=== PATIENT | male | born 1955 | race Caucasian/White ===

== ENCOUNTER 2023-04-24 13:33 | Outpatient (AMB) | payer MEDICARE, OTHER, SELFPAY ==
[2023-04-24 13:41] VITALS: BP 136/90; PULSE 80; O2SAT 98; BMI 38.3
--- NOTE | 2023-04-24 13:41 | HO.NEPHOV_ITS ---
HPI HPI Comments History of Present Illness Details I had the pleasure of seeing Kamaljit in follow-up of his chronic kidney disease. He has small left kidney. He has history of invasive melanoma of the neck. He has had DVT and is on anticoagulation. His serum creatinine in 2014 was 1.5 and has been staying around at 1.8. His blood pressure has been at goal. He denies any chest pain, shortness of breath, proximal nocturnal dyspnea, orthopnea, pedal edema or urinary symptoms. Recently serum creatinine has gone up to 2.6 with a serum potassium going up to 5.8. He was treated with Lokelma. He had no new active complaints at the time of this office visit. [facility] Medical History (Updated 04/24/23 @ 14:09 by Ashu Galindo MD) Atrophy of left kidney Chronic kidney disease, stage 3a DVT (deep venous thrombosis) Melanoma of neck Surgical History (Updated 04/24/23 @ 13:48 by Alfreda Miller MA) H/O neck surgery History of back surgery H/O knee surgery Social History (Updated 04/24/23 @ 13:49 by Alfreda Miller MA) Alcohol intake: current Comment: Socially Patient Tobacco Use Status: Former Tobacco user Vital Signs 04/24/23 13:41 Height 5 ft 10 in Weight 267 lb 2 oz BMI 38.3 BP 136/90 H Blood Pressure Location Rt brachial Position Sitting Pulse 80 Pulse Source Pulse Oximeter Pulse Oximetry (%) 98 Oxygen Delivery Method Room Air Physical Exam Vital Signs: Last Vital Signs Pulse 80 04/24/23 13:41 BP 136/90 H 04/24/23 13:41 Pulse Ox 98 04/24/23 13:41 Oxygen Delivery Method Room Air 04/24/23 13:41 BMI result Body Mass Index 38.3 Const General: comfortable and no acute distress Orientation/consciousness: patient oriented x3 HEENT Head: Yes normocephalic Mouth: Normal oral and palatal mucosa present Eyes EOM: EOMs intact bilaterally Neck Neck: Yes supple Resp Auscultation: clear to auscultation bilaterally Cardio Jugular venous distension: no JVD Rate: regular rate GI Palpation (GI): Soft to palpation Auscultation: normal bowel sounds General: Yes no CVA tenderness Back/Spine/Pelvis Back: no CVA tenderness Skin General skin exam: no rashes or lesions noted Neuro General: patient oriented x3 and moves all extremities Extrem General: Yes no pedal edema Assessment & Plan Assessment & Plan (1) Chronic kidney disease, stage 3a: Code(s): N18.31 - Chronic kidney disease, stage 3a (2) Atrophy of left kidney: Code(s): N26.1 - Atrophy of kidney (terminal) (3) Hyperkalemia: Code(s): E87.5 - Hyperkalemia Plan Kamaljit has atrophic left kidney. He recently had BRIAN most likely due to mild tubular injury. He had hyperkalemia at the same time. His hyperkalemia was treated with Lokelma. He has increased his hydration. He is not taking any nonsteroidal anti-inflammatory medications. I asked him to be on a strict low- potassium diet. His blood pressure has been at goal. He may be a candidate for [employer] Jardiance. It will be tough treating him with low-dose JENNIFER-inhibitor given his predilection for recurrent hyperkalemia. He would benefit from some weight loss. I did not make any medication changes today. I gave him list of foods with high potassium. Follow-up blood work ordered. Answered all questions. Follow-up given. Orders: Orders Electrolytes Today E87.5 - Hyperkalemia, N18.31 - Chronic kidney disease, stage 3a, N26.1 - Atrophy of kidney (terminal) Blood Urea Nitrogen Today E87.5 - Hyperkalemia, N18.31 - Chronic kidney disease, stage 3a, N26.1 - Atrophy of kidney (terminal) Creatinine Today E87.5 - Hyperkalemia, N18.31 - Chronic kidney disease, stage 3a, N26.1 - Atrophy of kidney (terminal) Coding Level of Care Code Est Pt Level 4 (40826) Diagnoses Chronic kidney disease, stage 3a N18.31 Atrophy of left kidney N26.1 Hyperkalemia E87.5 Results Reviewed Nephrology Results: No Data to Display
== END 2023-04-24 14:13 | disposition home or self-care (01) ==
PROVIDERS: PCP Internal Medicine; Visit Provider Internal Medicine Nephrology
DX: N18.31 Chronic kidney disease, stage 3a (principal); N26.1 Atrophy of kidney (terminal); E87.5 Hyperkalemia
CPT/HCPCS: 99214

== ENCOUNTER → 2023-04-24 13:33 | Outpatient (BNVA) | payer MEDICARE, OTHER, SELFPAY | PROVIDERS: PCP Internal Medicine; Visit Provider Internal Medicine Nephrology | DX: N18.31 Chronic kidney disease, stage 3a (principal); N26.1 Atrophy of kidney (terminal); E87.5 Hyperkalemia | CPT/HCPCS: 99212 ==

== ENCOUNTER 2023-05-24 13:19 | Outpatient (AMB) | payer MEDICARE, OTHER, SELFPAY ==
[2023-05-24 13:21] VITALS: BP 144/88; PULSE 75; O2SAT 98; BMI 38.1
--- NOTE | 2023-05-24 13:21 | HO.NEPHOV_ITS ---
HPI HPI Comments History of Present Illness Details I had the pleasure of seeing Kamaljit in follow-up of his chronic kidney disease. He has small left kidney. He has history of invasive melanoma of the neck. He has had DVT and is on anticoagulation. His serum creatinine in 2014 was 1.5 and has been staying around at 1.8 which is close to 2.0 now. His blood pressure has been at goal. He denies any chest pain, shortness of breath, proximal nocturnal dyspnea, orthopnea, pedal edema or urinary symptoms. Recently serum creatinine has gone up to 2.6 with a serum potassium going up to 5.8. He was treated with Lokelma. He has prostatic symptoms. His last PSA was just over 4.0. He had no new active complaints at the time of this office visit [facility], [facility] Medical History (Updated 04/24/23 @ 14:09 by Ashu Galindo MD) Atrophy of left kidney Chronic kidney disease, stage 3a DVT (deep venous thrombosis) Melanoma of neck Surgical History H/O neck surgery History of back surgery H/O knee surgery Social History Alcohol intake: current Comment: Socially Patient Tobacco Use Status: Former Tobacco user Vital Signs 05/24/23 13:21 Height 5 ft 10 in Weight 265 lb 8 oz BMI 38.1 BP 144/88 H Blood Pressure Location Lt brachial Position Sitting Pulse 75 Pulse Source Pulse Oximeter Pulse Oximetry (%) 98 Oxygen Delivery Method Room Air Physical Exam Vital Signs: Last Vital Signs Pulse 75 05/24/23 13:21 BP 144/88 H 05/24/23 13:21 Pulse Ox 98 05/24/23 13:21 Oxygen Delivery Method Room Air 05/24/23 13:21 BMI result Body Mass Index 38.1 Const General: comfortable and no acute distress Orientation/consciousness: patient oriented x3 HEENT Head: Yes normocephalic Mouth: Normal oral and palatal mucosa present Eyes EOM: EOMs intact bilaterally Neck Neck: Yes supple Resp Auscultation: clear to auscultation bilaterally Cardio Jugular venous distension: no JVD Rate: regular rate GI Palpation (GI): Soft to palpation Auscultation: normal bowel sounds General: Yes no CVA tenderness Back/Spine/Pelvis Back: no CVA tenderness Skin General skin exam: no rashes or lesions noted Neuro General: patient oriented x3 and moves all extremities Extrem General: Yes no pedal edema Assessment & Plan Assessment & Plan (1) Chronic kidney disease, stage 3a: Code(s): N18.31 - Chronic kidney disease, stage 3a (2) Atrophy of left kidney: Code(s): N26.1 - Atrophy of kidney (terminal) (3) Hyperkalemia: Code(s): E87.5 - Hyperkalemia Plan Kamaljit has atrophic left kidney. He has mild proteinuria. He recently had BRIAN most likely due to mild tubular injury. He had hyperkalemia at the same time. His hyperkalemia was treated with Lokelma. His K is 5.0 now. He has increased his hydration. He is not taking any nonsteroidal anti-inflammatory medications. I asked him to be on a strict low-potassium diet. His blood pressure has been at goal. His high K has reolved. He may be a candidate for Farxiga or Jardiance. It will be tough treating him with low-dose JENNIFER-inhibitor given his predilection for recurrent hyperkalemia. He would benefit from some weight loss. I did not make any medication changes today. He has a list of foods with high potassium.I asked him to take Flomax and see a Urologist which he wants to wait. His PSA is over 4.0. Follow-up blood work ordered. Answered all questions. Follow-up given. Coding Level of Care Code Est Pt Level 3 (15020) Diagnoses Chronic kidney disease, stage 3a N18.31 Atrophy of left kidney N26.1 Hyperkalemia E87.5 Results Reviewed Nephrology Results: No Data to Display
== END 2023-05-24 13:47 | disposition home or self-care (01) ==
PROVIDERS: PCP Internal Medicine; Visit Provider Internal Medicine Nephrology
DX: N18.31 Chronic kidney disease, stage 3a (principal); N26.1 Atrophy of kidney (terminal); E87.5 Hyperkalemia
CPT/HCPCS: 99213

== ENCOUNTER → 2023-05-24 13:19 | Outpatient (BNVA) | payer MEDICARE, OTHER, SELFPAY | PROVIDERS: PCP Internal Medicine; Visit Provider Internal Medicine Nephrology | DX: N18.31 Chronic kidney disease, stage 3a (principal); N26.1 Atrophy of kidney (terminal); E87.5 Hyperkalemia | CPT/HCPCS: 99212 ==

== ENCOUNTER 2023-08-23 13:20 | Outpatient (AMB) | payer MEDICARE, OTHER, SELFPAY ==
[2023-08-23 13:52] VITALS: BP 148/80; PULSE 68; O2SAT 96; BMI 36.9
--- NOTE | 2023-08-23 13:52 | HO.NEPHOV ---
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 He has small left kidney. He has history of invasive melanoma of the neck. He has had DVT and is on anticoagulation. His serum creatinine in 2015 was 1.5 and has been staying around at 1.8 which is close to 2.0 now. His blood pressure has been at goal. He denies any chest pain, shortness of breath, proximal nocturnal dyspnea, orthopnea, pedal edema or urinary symptoms. Recently serum creatinine has gone up to 2.6 with a serum potassium going up to 5.8. He was treated with Lokelma. He has prostatic symptoms. His last PSA was just over 4.0. He had no new active complaints at the time of this office visit [facility] Medical History (Updated 04/24/23 @ 14:09 by Ashu Galindo MD) Atrophy of left kidney Chronic kidney disease, stage 3a DVT (deep venous thrombosis) Melanoma of neck Surgical History H/O neck surgery History of back surgery H/O knee surgery Social History Alcohol intake: current Comment: Socially Patient Tobacco Use Status: Former Tobacco user Physical Exam Vital Signs: Last Vital Signs Pulse 68 08/23/23 13:52 BP 148/80 H 08/23/23 13:52 Pulse Ox 96 08/23/23 13:52 Oxygen Delivery Method Room Air 08/23/23 13:52 BMI result Body Mass Index 36.9 Results Reviewed Nephrology Results: No Data to Display Assessment & Plan Assessment & Plan (1) Chronic kidney disease, stage 3a: Code(s): N18.31 - Chronic kidney disease, stage 3a Category: Medical (2) Atrophy of left kidney: Code(s): N26.1 - Atrophy of kidney (terminal) Category: Medical (3) Hyperkalemia: Code(s): E87.5 - Hyperkalemia Category: Medical Plan Kamaljit has atrophic left kidney. He has mild proteinuria. He recently had BRIAN most likely due to mild tubular injury. He had hyperkalemia at the same time. His hyperkalemia was treated with Lokelma. His K is 5.0 now. He has increased his hydration. He is not taking any nonsteroidal anti-inflammatory medications. I asked him to be on a strict low-potassium diet. His blood pressure has been at goal. His high K has resolved. He may be a candidate for Farxiga or Jardiance. It will be tough treating him with low-dose JENNIFER-inhibitor given his predilection for recurrent hyperkalemia. He would benefit from some weight loss. I did not make any medication changes today. He has a list of foods with high potassium. Follow-up blood work ordered. Answered all questions. Follow-up given Orders: Orders Creatinine Today E87.5 - Hyperkalemia, N18.31 - Chronic kidney disease, stage 3a, N26.1 - Atrophy of kidney (terminal) Blood Urea Nitrogen Today E87.5 - Hyperkalemia, N18.31 - Chronic kidney disease, stage 3a, N26.1 - Atrophy of kidney (terminal) Electrolytes Today E87.5 - Hyperkalemia, N18.31 - Chronic kidney disease, stage 3a, N26.1 - Atrophy of kidney (terminal)
== END 2023-08-23 14:21 | disposition home or self-care (01) ==
PROVIDERS: PCP Internal Medicine; Visit Provider Internal Medicine Nephrology
DX: N18.31 Chronic kidney disease, stage 3a (principal); N26.1 Atrophy of kidney (terminal); E87.5 Hyperkalemia
CPT/HCPCS: 99214

== ENCOUNTER → 2023-08-23 13:20 | Outpatient (BNVA) | payer MEDICARE, OTHER, SELFPAY | PROVIDERS: PCP Internal Medicine; Visit Provider Internal Medicine Nephrology ==

== ENCOUNTER 2023-08-23 14:12 | Outpatient (REF) | payer MEDICARE, OTHER, SELFPAY ==
[2023-08-23 17:32] LABS: Anion Gap 9 (12-20); Blood Urea Nitrogen 33 mg/dL (9-16); Carbon Dioxide 23 mmol/L (22-29); Chloride 114 mmol/L (96-108); Estimated Glomerular Filt Rate 33; Potassium 4.2 mmol/L (3.3-5.1); Sodium 142 mmol/L (135-145)
== END 2023-08-23 14:13 | disposition home or self-care (01) ==
LOC: HO.HKASLDS 14:12
PROVIDERS: Visit Provider Internal Medicine Nephrology
DX: E87.5 Hyperkalemia (principal); N18.31 Chronic kidney disease, stage 3a; N26.1 Atrophy of kidney (terminal); Z86.718 Personal history of other venous thrombosis and embolism; Z79.01 Long term (current) use of anticoagulants
CPT/HCPCS: 36415; 80051; 82565; 84520; 99212

== ENCOUNTER 2023-10-17 12:02 | Outpatient (REF) | payer MEDICARE, OTHER, SELFPAY ==
[2023-10-17 19:08] LABS: Anion Gap 11 (12-20); Blood Urea Nitrogen 48 mg/dL (9-16); Calcium 9.1 mg/dL (8.4-10.2); Carbon Dioxide 23 mmol/L (22-29); Chloride 113 mmol/L (96-108); Estimated Glomerular Filt Rate 25; Potassium 5.3 mmol/L (3.3-5.1); Sodium 142 mmol/L (135-145)
== END 2023-10-17 12:03 | disposition home or self-care (01) ==
LOC: HO.HKASLDS 12:02
PROVIDERS: Visit Provider Internal Medicine Nephrology
DX: E87.5 Hyperkalemia (principal); N17.9 Acute kidney failure, unspecified; N26.1 Atrophy of kidney (terminal); N18.31 Chronic kidney disease, stage 3a
CPT/HCPCS: 36415; 80051; 82310; 82565; 84520

== ENCOUNTER 2023-10-30 10:51 | Outpatient (REF) | payer MEDICARE, OTHER, SELFPAY ==
[2023-10-30 18:31] LABS: Anion Gap 11 (12-20); Blood Urea Nitrogen 41 mg/dL (9-16); Carbon Dioxide 23 mmol/L (22-29); Chloride 113 mmol/L (96-108); Estimated Glomerular Filt Rate 30; Potassium 4.9 mmol/L (3.3-5.1); Sodium 142 mmol/L (135-145)
== END 2023-10-30 10:52 | disposition home or self-care (01) ==
LOC: HO.HKASLDS 10:51
PROVIDERS: Visit Provider Internal Medicine Nephrology
DX: N18.31 Chronic kidney disease, stage 3a (principal); N26.1 Atrophy of kidney (terminal); E78.5 Hyperlipidemia, unspecified; N17.9 Acute kidney failure, unspecified
CPT/HCPCS: 36415; 80051; 82310; 82565; 84520

== ENCOUNTER 2023-11-20 13:02 | Outpatient (REF) | payer MEDICARE, OTHER, SELFPAY ==
[2023-11-20 17:46] LABS: Anion Gap 13 (12-20); Blood Urea Nitrogen 33 mg/dL (9-16); Carbon Dioxide 20 mmol/L (22-29); Chloride 113 mmol/L (96-108); Estimated Glomerular Filt Rate 31; Sodium 141 mmol/L (135-145)
== END 2023-11-20 13:03 | disposition home or self-care (01) ==
LOC: HO.HKASLDS 13:02
PROVIDERS: Visit Provider Internal Medicine Nephrology
DX: E87.5 Hyperkalemia (principal); N18.31 Chronic kidney disease, stage 3a; N26.1 Atrophy of kidney (terminal)
CPT/HCPCS: 36415; 80051; 82565; 84520

== ENCOUNTER 2023-11-22 14:04 | Outpatient (AMB) | payer MEDICARE, OTHER, SELFPAY ==
[2023-11-22 14:22] VITALS: BP 134/84; PULSE 66; O2SAT 97; BMI 35.2
--- NOTE | 2023-11-22 14:22 | HO.NEPHOV ---
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 He has small left kidney. He has history of invasive melanoma of the neck. He has had DVT and is on anticoagulation. His serum creatinine in 2014 was 1.5 and has been staying around at 1.8 which is close to 2.0 now. His blood pressure has been at goal. He denies any chest pain, shortness of breath, proximal nocturnal dyspnea, orthopnea, pedal edema or urinary symptoms. Recently serum creatinine has gone up to 2.6 with a serum potassium going up to 5.8. He was treated with Lokelma. He has prostatic symptoms. His last PSA was just over 4.0. He had no new active complaints at the time of this office visit [facility] Medical History (Updated 11/22/23 @ 14:55 by Ashu Galindo MD) H/O nephrolithotomy with removal of calculi (~10/2023) Atrophy of left kidney Chronic kidney disease, stage 3a DVT (deep venous thrombosis) Melanoma of neck Surgical History H/O neck surgery History of back surgery H/O knee surgery Social History Alcohol intake: current Comment: Socially Patient Tobacco Use Status: Former Tobacco user Physical Exam Vital Signs: Last Vital Signs Pulse 66 11/22/23 14:22 BP 134/84 11/22/23 14:22 Pulse Ox 97 11/22/23 14:22 Oxygen Delivery Method Room Air 11/22/23 14:22 BMI result Body Mass Index 35.2 Const General: comfortable and no acute distress Orientation/consciousness: patient oriented x3 HEENT Head: Yes normocephalic Mouth: Normal oral and palatal mucosa present Eyes EOM: EOMs intact bilaterally Neck Neck: Yes supple Resp Auscultation: clear to auscultation bilaterally Cardio Jugular venous distension: no JVD Rate: regular rate GI Palpation (GI): Soft to palpation Auscultation: normal bowel sounds General: Yes no CVA tenderness Back/Spine/Pelvis Back: no CVA tenderness Skin General skin exam: no rashes or lesions noted Neuro General: patient oriented x3 and moves all extremities Extrem General: Yes no pedal edema Results Reviewed Nephrology Results: Sodium 141 mmol/L (135-145) 11/20/23 Potassium 5.0 mmol/L (3.3-5.1) 11/20/23 Chloride 113 mmol/L (96-108) H 11/20/23 Carbon Dioxide 20 mmol/L (22-29) L 11/20/23 BUN 33 mg/dL (9-16) H 11/20/23 Creatinine 2.13 mg/dL (0.5-1.4) H 11/20/23 Calcium 9.0 mg/dL (8.4-10.2) 10/30/23 Assessment & Plan Assessment & Plan (1) Chronic kidney disease, stage 3a: Code(s): N18.31 - Chronic kidney disease, stage 3a Category: Medical (2) Atrophy of left kidney: Code(s): N26.1 - Atrophy of kidney (terminal) Category: Medical (3) Hyperkalemia: Code(s): E87.5 - Hyperkalemia Category: Medical (4) Renal calculus: Code(s): N20.0 - Calculus of kidney Category: Medical Plan Kamaljit has atrophic left kidney. He has mild proteinuria. He has increased his hydration. He is not taking any nonsteroidal anti-inflammatory medications. I asked him to be on a strict low-potassium diet. His blood pressure has been at goal. His high K has resolved. He may be a candidate for Farxiga or Jardiance. It will be tough treating him with low-dose JENNIFER-inhibitor given his predilection for recurrent hyperkalemia. He would benefit from some weight loss. I did not make any medication changes today. He has a list of foods with high potassium. Follow-up blood work ordered. Answered all questions. Follow-up given Orders: Orders Creatinine Today E87.5 - Hyperkalemia, N18.31 - Chronic kidney disease, stage 3a, N20.0 - Calculus of kidney, N26.1 - Atrophy of kidney (terminal) Blood Urea Nitrogen Today E87.5 - Hyperkalemia, N18.31 - Chronic kidney disease, stage 3a, N20.0 - Calculus of kidney, N26.1 - Atrophy of kidney (terminal) Electrolytes Today E87.5 - Hyperkalemia, N18.31 - Chronic kidney disease, stage 3a, N20.0 - Calculus of kidney, N26.1 - Atrophy of kidney (terminal) Coding Level of Care Code Est Pt Level 4 (82703) Diagnoses Chronic kidney disease, stage 3a N18.31 Atrophy of left kidney N26.1 Hyperkalemia E87.5 Renal calculus N20.0
== END 2023-11-22 14:59 | disposition home or self-care (01) ==
PROVIDERS: PCP Internal Medicine; Visit Provider Internal Medicine Nephrology
DX: N18.31 Chronic kidney disease, stage 3a (principal); N26.1 Atrophy of kidney (terminal); E87.5 Hyperkalemia; N20.0 Calculus of kidney
CPT/HCPCS: 99214

== ENCOUNTER → 2023-11-22 14:04 | Outpatient (BNVA) | payer MEDICARE, OTHER, SELFPAY | PROVIDERS: PCP Internal Medicine; Visit Provider Internal Medicine Nephrology | DX: N18.31 Chronic kidney disease, stage 3a (principal); N26.1 Atrophy of kidney (terminal); E87.5 Hyperkalemia; N20.0 Calculus of kidney; Z79.01 Long term (current) use of anticoagulants | CPT/HCPCS: 99212 ==

== ENCOUNTER 2024-02-14 10:29 | Outpatient (REF) | payer MEDICARE, OTHER, SELFPAY ==
[2024-02-14 14:47] LABS: Anion Gap 11 (12-20); Blood Urea Nitrogen 35 mg/dL (9-16); Carbon Dioxide 26 mmol/L (22-29); Chloride 110 mmol/L (96-108); Estimated Glomerular Filt Rate 28; Potassium 5.5 mmol/L (3.3-5.1); Sodium 141 mmol/L (135-145)
== END 2024-02-14 10:30 | disposition home or self-care (01) ==
LOC: HO.HKASLDS 10:29
PROVIDERS: Visit Provider Internal Medicine Nephrology
DX: N18.31 Chronic kidney disease, stage 3a (principal); N26.1 Atrophy of kidney (terminal); E87.5 Hyperkalemia
CPT/HCPCS: 36415; 80051; 82565; 84520

== ENCOUNTER 2024-02-21 13:21 | Outpatient (AMB) | payer MEDICARE, OTHER, SELFPAY ==
[2024-02-21 13:34] VITALS: BP 142/88; PULSE 64; O2SAT 97; BMI 35.4
--- NOTE | 2024-02-21 13:34 | HO.NEPHOV ---
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 He has small left kidney. He has history of invasive melanoma of the neck. He has had DVT and is on anticoagulation. His serum creatinine in 2015 was 1.5 and has been staying around at 1.8 which is close to 2.3 now. His blood pressure has been at goal. He denies any chest pain, shortness of breath, proximal nocturnal dyspnea, orthopnea, pedal edema or urinary symptoms. He has prostatic symptoms. His last PSA was just over 4.0. He had no new active complaints at the time of this office visit [facility] Medical History (Updated 11/22/23 @ 14:55 by Ashu Galindo MD) H/O nephrolithotomy with removal of calculi (~10/2023) Atrophy of left kidney Chronic kidney disease, stage 3a DVT (deep venous thrombosis) Melanoma of neck Surgical History H/O neck surgery History of back surgery H/O knee surgery Social History Alcohol intake: current Comment: Socially Patient Tobacco Use Status: Former Tobacco user Review of Systems Const All systems reviewed & are unremarkable except as noted in HPI and below Physical Exam Vital Signs: Last Vital Signs Pulse 64 02/21/24 13:34 BP 142/88 H 02/21/24 13:34 Pulse Ox 97 02/21/24 13:34 Oxygen Delivery Method Room Air 02/21/24 13:34 BMI result Body Mass Index 35.4 Const General: comfortable and no acute distress Orientation/consciousness: patient oriented x3 HEENT Head: Yes normocephalic Mouth: Normal oral and palatal mucosa present Eyes EOM: EOMs intact bilaterally Neck Neck: Yes supple Resp Auscultation: clear to auscultation bilaterally Cardio Jugular venous distension: no JVD Rate: regular rate GI Palpation (GI): Soft to palpation Auscultation: normal bowel sounds General: Yes no CVA tenderness Back/Spine/Pelvis Back: no CVA tenderness Skin General skin exam: no rashes or lesions noted Neuro General: patient oriented x3 and moves all extremities Extrem General: Yes no pedal edema Results Reviewed Nephrology Results: Sodium 141 mmol/L (135-145) 02/14/24 Potassium 5.5 mmol/L (3.3-5.1) H 02/14/24 Chloride 110 mmol/L (96-108) H 02/14/24 Carbon Dioxide 26 mmol/L (22-29) 02/14/24 BUN 35 mg/dL (9-16) H 02/14/24 Creatinine 2.30 mg/dL (0.5-1.4) H 02/14/24 Calcium 9.0 mg/dL (8.4-10.2) 10/30/23 Assessment & Plan Assessment & Plan (1) Chronic kidney disease, stage 3a: Code(s): N18.31 - Chronic kidney disease, stage 3a Category: Medical (2) Atrophy of left kidney: Code(s): N26.1 - Atrophy of kidney (terminal) Category: Medical (3) Hyperkalemia: Code(s): E87.5 - Hyperkalemia Category: Medical (4) Renal calculus: Code(s): N20.0 - Calculus of kidney Category: Medical Plan Kamaljit has atrophic left kidney. He has mild proteinuria. He has increased his hydration. He is not taking any nonsteroidal anti-inflammatory medications. I asked him to be on a strict low-potassium diet. His blood pressure needs to be kept at goal. His high K has been high and was treated with K lowering medications . Repeat blood work ordered. He may need K lowering medications and BP medications. He may be a candidate for Farxiga or Jardiance. It will be tough treating him with low-dose JENNIFER-inhibitor given his predilection for recurrent hyperkalemia. He would benefit from some weight loss. I did not make any medication changes today. He has a list of foods with high potassium. Follow-up blood work ordered. Answered all questions. Follow-up given Orders: Orders Blood Urea Nitrogen Today E87.5 - Hyperkalemia, N18.31 - Chronic kidney disease, stage 3a, N20.0 - Calculus of kidney, N26.1 - Atrophy of kidney (terminal) Creatinine 2 Months E87.5 - Hyperkalemia, N18.31 - Chronic kidney disease, stage 3a, N20.0 - Calculus of kidney, N26.1 - Atrophy of kidney (terminal) Blood Urea Nitrogen 2 Months E87.5 - Hyperkalemia, N18.31 - Chronic kidney disease, stage 3a, N20.0 - Calculus of kidney, N26.1 - Atrophy of kidney (terminal) Electrolytes 2 Months E87.5 - Hyperkalemia, N18.31 - Chronic kidney disease, stage 3a, N20.0 - Calculus of kidney, N26.1 - Atrophy of kidney (terminal) Creatinine Today E87.5 - Hyperkalemia, N18.31 - Chronic kidney disease, stage 3a, N20.0 - Calculus of kidney, N26.1 - Atrophy of kidney (terminal) Electrolytes Today E87.5 - Hyperkalemia, N18.31 - Chronic kidney disease, stage 3a, N20.0 - Calculus of kidney, N26.1 - Atrophy of kidney (terminal) Coding Level of Care Code Est Pt Level 4 (04779) Diagnoses Chronic kidney disease, stage 3a N18.31 Atrophy of left kidney N26.1 Hyperkalemia E87.5 Renal calculus N20.0
== END 2024-02-21 13:58 | disposition home or self-care (01) ==
PROVIDERS: PCP Internal Medicine; Visit Provider Internal Medicine Nephrology
DX: N18.31 Chronic kidney disease, stage 3a (principal); N26.1 Atrophy of kidney (terminal); E87.5 Hyperkalemia; N20.0 Calculus of kidney
CPT/HCPCS: 99214

== ENCOUNTER → 2024-02-21 13:21 | Outpatient (BNVA) | payer MEDICARE, OTHER, SELFPAY | PROVIDERS: PCP Internal Medicine; Visit Provider Internal Medicine Nephrology | DX: N18.31 Chronic kidney disease, stage 3a (principal); N26.1 Atrophy of kidney (terminal); N20.0 Calculus of kidney; E87.5 Hyperkalemia; Z79.01 Long term (current) use of anticoagulants; Z86.718 Personal history of other venous thrombosis and embolism | CPT/HCPCS: 99212 ==

== ENCOUNTER 2024-02-26 10:12 | Outpatient (REF) | payer MEDICARE, OTHER, SELFPAY ==
[2024-02-26 13:40] LABS: Anion Gap 12 (12-20); Blood Urea Nitrogen 33 mg/dL (9-16); Carbon Dioxide 25 mmol/L (22-29); Chloride 108 mmol/L (96-108); Estimated Glomerular Filt Rate 26; Potassium 5.3 mmol/L (3.3-5.1); Sodium 140 mmol/L (135-145)
== END 2024-02-26 10:13 | disposition home or self-care (01) ==
LOC: HO.HKASLDS 10:12
PROVIDERS: Visit Provider Internal Medicine Nephrology
DX: N20.0 Calculus of kidney (principal); E87.5 Hyperkalemia; N18.31 Chronic kidney disease, stage 3a; N26.1 Atrophy of kidney (terminal)
CPT/HCPCS: 36415; 80051; 82565; 84520

== ENCOUNTER 2024-04-18 10:44 | Outpatient (REF) | payer MEDICARE, OTHER, SELFPAY ==
[2024-04-18 13:39] LABS: Anion Gap 12 (12-20); Blood Urea Nitrogen 34 mg/dL (9-16); Carbon Dioxide 22 mmol/L (22-29); Chloride 112 mmol/L (96-108); Estimated Glomerular Filt Rate 25; Potassium 4.3 mmol/L (3.3-5.1); Sodium 142 mmol/L (135-145)
== END 2024-04-18 10:45 | disposition home or self-care (01) ==
LOC: HO.HMGCLDS 10:44
PROVIDERS: PCP Internal Medicine; Visit Provider Internal Medicine Nephrology
DX: N26.1 Atrophy of kidney (terminal) (principal); N18.31 Chronic kidney disease, stage 3a; E87.5 Hyperkalemia; N20.0 Calculus of kidney
CPT/HCPCS: 36415; 80051; 82565; 84520

== ENCOUNTER 2024-05-08 14:28 | Outpatient (AMB) | payer MEDICARE, OTHER, SELFPAY ==
--- NOTE | 2024-05-08 14:35 | HO.NEPHOV_ITS ---
Vital Signs 05/08/24 14:36 Height 5 ft 10 in Weight 250 lb BMI 35.9 BP 130/80 Blood Pressure Location Lt brachial Position Sitting Pulse 60 Pulse Source Pulse Oximeter Pulse Oximetry (%) 97 Oxygen Delivery Method Room Air Intake Visit Reasons: 3mon follow up-Confirmed Land Commissioner Required: No Accompanied by: Self / Same As Patient Allergies No Known Allergies Allergy (Verified 05/08/24 14:36) HPI Comments Details: I had the pleasure of seeing Kamaljit in follow-up of his chronic kidney disease. He has small left kidney. He has history of invasive melanoma of the neck. He has had DVT and is on anticoagulation. His serum creatinine in 2014 was 1.5 and has been staying around at 1.8 which is close to 2.5 now. His blood pressure has been at goal. He denies any chest pain, shortness of breath, proximal nocturnal dyspnea, orthopnea, pedal edema or urinary symptoms. He has prostatic symptoms. His last PSA was just over 4.0. He had no new active complaints at the time of this office visit [facility] Medical History (Updated 11/22/23 @ 14:55 by Ashu Galindo MD) H/O nephrolithotomy with removal of calculi (~10/2023) Atrophy of left kidney Chronic kidney disease, stage 3a DVT (deep venous thrombosis) Melanoma of neck Surgical History H/O neck surgery History of back surgery H/O knee surgery Social History Alcohol intake: current Comment: Socially Patient Tobacco Use Status: Former Tobacco user Review of Systems Const All systems reviewed & are unremarkable except as noted in HPI and below Physical Exam Vital Signs: Last Vital Signs Pulse 60 05/08/24 14:36 BP 150/100 H 05/08/24 14:36 Pulse Ox 97 05/08/24 14:36 Oxygen Delivery Method Room Air 05/08/24 14:36 BMI result Body Mass Index 35.9 Const General: comfortable and no acute distress Orientation/consciousness: patient oriented x3 HEENT Head: Yes normocephalic Mouth: Normal oral and palatal mucosa present Eyes EOM: EOMs intact bilaterally Neck Neck: Yes supple Resp Auscultation: clear to auscultation bilaterally Cardio Jugular venous distension: no JVD Rate: regular rate GI Palpation (GI): Soft to palpation Auscultation: normal bowel sounds General: Yes no CVA tenderness Back/Spine/Pelvis Back: no CVA tenderness Skin General skin exam: no rashes or lesions noted Neuro General: patient oriented x3 and moves all extremities Extrem General: Yes no pedal edema Results Reviewed Nephrology Results: Sodium 142 mmol/L (135-145) 04/18/24 Potassium 4.3 mmol/L (3.3-5.1) 04/18/24 Chloride 112 mmol/L (96-108) H 04/18/24 Carbon Dioxide 22 mmol/L (22-29) 04/18/24 BUN 34 mg/dL (9-16) H 04/18/24 Creatinine 2.57 mg/dL (0.5-1.4) H 04/18/24 Calcium 9.0 mg/dL (8.4-10.2) 10/30/23 Assessment & Plan Assessment & Plan (1) Renal calculus: Code(s): N20.0 - Calculus of kidney Category: Medical (2) Chronic kidney disease, stage 3a: Code(s): N18.31 - Chronic kidney disease, stage 3a Category: Medical (3) Atrophy of left kidney: Code(s): N26.1 - Atrophy of kidney (terminal) Category: Medical Plan Kamaljit has atrophic left kidney. He has mild proteinuria. He has increased his hydration. He is not taking any nonsteroidal anti-inflammatory medications. I asked him to be on a strict low-potassium diet. His blood pressure needs to be kept at goal. He may be a candidate for Jardiance. It will be tough treating him with low-dose JENNIFER-inhibitor given his predilection for recurrent hyperkalemia. He would benefit from some weight loss. I did not make any medication changes today. He has a list of foods with high potassium. Follow-up blood work ordered. Answered all questions. Follow-up given Orders: Orders Blood Urea Nitrogen 4 Months N18.31 - Chronic kidney disease, stage 3a, N20.0 - Calculus of kidney, N26.1 - Atrophy of kidney (terminal) Electrolytes 4 Months N18.31 - Chronic kidney disease, stage 3a, N20.0 - Calculus of kidney, N26.1 - Atrophy of kidney (terminal) Creatinine 4 Months N18.31 - Chronic kidney disease, stage 3a, N20.0 - Calculus of kidney, N26.1 - Atrophy of kidney (terminal) Coding Level of Care Code Est Pt Level 4 (95078) Diagnoses Renal calculus N20.0 Chronic kidney disease, stage 3a N18.31 Atrophy of left kidney N26.1
[2024-05-08 14:36] VITALS: BP 130/80; PULSE 60; O2SAT 97; BMI 35.9
== END 2024-05-08 14:51 | disposition home or self-care (01) ==
PROVIDERS: PCP Internal Medicine; Visit Provider Internal Medicine Nephrology
DX: N20.0 Calculus of kidney (principal); N18.31 Chronic kidney disease, stage 3a; N26.1 Atrophy of kidney (terminal)
CPT/HCPCS: 99214

== ENCOUNTER → 2024-05-08 14:28 | Outpatient (BNVA) | payer MEDICARE, OTHER, SELFPAY | PROVIDERS: PCP Internal Medicine; Visit Provider Internal Medicine Nephrology | DX: N18.31 Chronic kidney disease, stage 3a (principal); N26.1 Atrophy of kidney (terminal); N20.0 Calculus of kidney | CPT/HCPCS: 99212 ==

== ENCOUNTER 2024-08-06 10:53 | Outpatient (REF) | payer MEDICARE, OTHER, SELFPAY ==
--- OUTSIDE RECORDS SUMMARY | 2024-08-06 13:07 | XMS_ITS | Clinical Summary ---
Author Organization [facility] Address [address] [place] [address] Phone Care Team Providers Care Right Of Way Cutter Name Role Phone Maryam Lockhart MD Primary Care Provider +1 [phone] Allergies No known active allergies Medications apixaban (ELIQUIS) 5 MG tablet Take 5 mg by mouth 2 (two) times a day Active triamcinolone (KENALOG) 0.1 % cream Active albuterol 0.63 MG/3ML nebulizer solution Take 0.63 mg by nebulization if needed for wheezing Active Active Problems Problem Noted Date Diagnosed Date Obesity 10/27/2021 Deep venous thrombosis of lower extremity 2021 Stage 3a chronic kidney disease 03/14/2021 Chronic kidney disease 09/06/2020 Immunizations Name Administration Dates Next Due Influenza Whole 03/18/2014 Influenza, Unspecified 07/27/2020 Pfizer SARS-COV-2 02/01/2021,08/29/2020,08/07/19 21 Pneumococcal Polysaccharide 07/27/2020 Family History Medical History Relation Comments Kidney disease Father's Brother Relation Status Comments Father Father's Brother Mother Social History Tobacco Use Types Packs/Day Years Used Date Smoking Tobacco: Former Smokeless Tobacco: Former Tobacco Cessation:Counseling Given: Not Answered Alcohol Use Standard Drinks/Week Comments Never 0 (1 standard drink = 0.6 oz pur e alcohol) Sex and Gender Information Value Date Recorded Sex Assigned at Not on file Legal Sex Male 1:48 PM EDT Gender Identity Not on file Sexual Orientation Not on file Last Filed Vital Signs Vital Sign Reading Time Taken Comments Blood Pressure 138/80 11/02/2022 3:11 PM EDT Pulse 76 11/02/2022 3:11 PM EDT Temperature - - Respiratory Rate - - Oxygen Saturation 94% 05/04/2022 2:43 PM EST Inhaled Oxygen Concentration - - Weight 121 kg (266 lb 3.2 oz) 11/02/2022 3:11 PM EDT Height 177.8 cm (5' 10 ) 03/14/2021 12:50 PM EST Body Mass Index 38.2 03/14/2021 12:50 PM EST Plan of Treatment Health Maintenance Due Date Last Done Comments Colorectal Cancer Screening: Annual FOBT 08/03/2004 Colorectal Cancer Screening: Colonoscopy 08/03/2004 Colorectal Cancer Screening: Sigmoidoscopy 08/03/2004 Pneumococcal Vaccine: 65+ Years (2 of 2 - PCV) 07/27/2021 07/27/2020 Influenza Vaccine (#1) 2024 , 03/18/2014 Hepatitis B Vaccine Aged Out No longe r eligible based on patient's age to complete this topic Insurance MEDICARE [facility] MEDICARE [facility] Care Teams Right Of Way Cutter Relationship Specialty Start Date End Date Maryam Lockhart MD [address] PCP - General Internal Medicine 09/06/20
[2024-08-06 13:59] LABS: Anion Gap 11 (12-20); Blood Urea Nitrogen 38 mg/dL (9-16); Carbon Dioxide 22 mmol/L (22-29); Chloride 113 mmol/L (96-108); Estimated Glomerular Filt Rate 30; Sodium 141 mmol/L (135-145)
== END 2024-08-06 10:54 | disposition home or self-care (01) ==
LOC: HO.HMGCLDS 10:53
PROVIDERS: Visit Provider Internal Medicine Nephrology
DX: N20.0 Calculus of kidney (principal); E87.5 Hyperkalemia; N18.31 Chronic kidney disease, stage 3a; N26.1 Atrophy of kidney (terminal)
CPT/HCPCS: 36415; 80051; 82565; 84520

== ENCOUNTER 2024-08-12 11:21 | Outpatient (AMB) | payer MEDICARE, OTHER, SELFPAY ==
--- NOTE | 2024-08-12 11:43 | HO.NEPHOV_ITS ---
Vital Signs 08/12/24 11:45 Height 5 ft 10 in Weight 250 lb 2 oz BMI 35.9 BP 132/90 H Blood Pressure Location Lt brachial Position Sitting Intake Visit Reasons: 4 mon f/u-Voicemail Full Heel Sprayer First Required: No Accompanied by: Self / Same As Patient Allergies No Known Allergies Allergy (Verified 08/12/24 11:43) HPI Comments Details: I had the pleasure of seeing Kamaljit in follow-up of his chronic kidney disease. He has small left kidney. He has history of invasive melanoma of the neck. He has had DVT and is on anticoagulation. His serum creatinine in 2014 was 1.5 and has been staying around at 1.8 which is close to 2.2 now. His blood pressure has been at goal. He denies any chest pain, shortness of breath, proximal nocturnal dyspnea, orthopnea, pedal edema or urinary symptoms. He has prostatic symptoms. His last PSA was just over 4.0. He had no new active complaints at the time of this office visit [facility] Medical History (Updated 11/22/23 @ 14:55 by Ashu Galindo MD) H/O nephrolithotomy with removal of calculi (~10/2023) Atrophy of left kidney Chronic kidney disease, stage 3a DVT (deep venous thrombosis) Melanoma of neck Surgical History H/O neck surgery History of back surgery H/O knee surgery Social History Alcohol intake: current Comment: Socially Patient Tobacco Use Status: Former Tobacco user Review of Systems Const All systems reviewed & are unremarkable except as noted in HPI and below Physical Exam Vital Signs: Last Vital Signs BP 132/90 H 08/12/24 11:45 BMI result Body Mass Index 35.9 Const General: comfortable and no acute distress Orientation/consciousness: patient oriented x3 HEENT Head: Yes normocephalic Mouth: Normal oral and palatal mucosa present Eyes EOM: EOMs intact bilaterally Neck Neck: Yes supple Resp Auscultation: clear to auscultation bilaterally Cardio Jugular venous distension: no JVD Rate: regular rate GI Palpation (GI): Soft to palpation Auscultation: normal bowel sounds General: Yes no CVA tenderness Back/Spine/Pelvis Back: no CVA tenderness Skin General skin exam: no rashes or lesions noted Neuro General: patient oriented x3 and moves all extremities Extrem General: Yes no pedal edema Results Reviewed Nephrology Results: Sodium 141 mmol/L (135-145) 08/06/24 Potassium 5.0 mmol/L (3.3-5.1) 08/06/24 Chloride 113 mmol/L (96-108) H 08/06/24 Carbon Dioxide 22 mmol/L (22-29) 08/06/24 BUN 38 mg/dL (9-16) H 08/06/24 Creatinine 2.20 mg/dL (0.5-1.4) H 08/06/24 Calcium 9.0 mg/dL (8.4-10.2) 10/30/23 Assessment & Plan Assessment & Plan (1) Renal calculus: Code(s): N20.0 - Calculus of kidney Category: Medical (2) Chronic kidney disease, stage 3a: Code(s): N18.31 - Chronic kidney disease, stage 3a Category: Medical (3) Atrophy of left kidney: Code(s): N26.1 - Atrophy of kidney (terminal) Category: Medical Plan Kamaljit has atrophic left kidney. He has mild proteinuria. He has increased his hydration. He is not taking any nonsteroidal anti-inflammatory medications. I asked him to be on a strict low-potassium diet. His blood pressure needs to be kept at goal. He may be a candidate for Jardiance. It will be tough treating him with low-dose JENNIFER-inhibitor given his predilection for recurrent hyperkalemia. He would benefit from some weight loss. I did not make any medication changes today. He has a list of foods with high potassium. Follow-up blood work ordered. Answered all questions. Follow-up given Orders: Orders Creatinine 4 Months N18.31 - Chronic kidney disease, stage 3a, N20.0 - Calculus of kidney, N26.1 - Atrophy of kidney (terminal) Blood Urea Nitrogen 4 Months N18.31 - Chronic kidney disease, stage 3a, N20.0 - Calculus of kidney, N26.1 - Atrophy of kidney (terminal) Electrolytes 4 Months N18.31 - Chronic kidney disease, stage 3a, N20.0 - Calculus of kidney, N26.1 - Atrophy of kidney (terminal) Calcium 4 Months N18.31 - Chronic kidney disease, stage 3a, N20.0 - Calculus of kidney, N26.1 - Atrophy of kidney (terminal) Coding Level of Care Code Est Pt Level 4 (62783) Diagnoses Renal calculus N20.0 Chronic kidney disease, stage 3a N18.31 Atrophy of left kidney N26.1
[2024-08-12 11:45] VITALS: BP 132/90; BMI 35.9
--- OUTSIDE RECORDS SUMMARY | 2024-08-12 13:55 | XMS_ITS | Clinical Summary ---
Author Organization [facility] Address [address] [place] [address] Phone Care Team Providers Care Roof Cement And Paint Maker Name Role Phone Maryam Lockhart MD Primary Care Provider [phone] [phone] Allergies No known active allergies Medications apixaban [...] 2 - PCV) 07/27/2021 07/27/2020 Influenza Vaccine (Season Ended) 2025 07/27/2020, 03/18/2014 Hepatitis B Vaccine Aged Out No longe r eligible based on patient's age to complete this topic Insurance MEDICARE [facility] MEDICARE [facility] Care Teams Roof Cement And Paint Maker Relationship Specialty Start Date End Date Maryam Lockhart MD [address] PCP - General Internal Medicine 09/06/20
== END 2024-08-12 12:04 | disposition home or self-care (01) ==
LOC: HO.HKAS 11:21
PROVIDERS: PCP Internal Medicine; Visit Provider Internal Medicine Nephrology
DX: N20.0 Calculus of kidney (principal); N18.31 Chronic kidney disease, stage 3a; N26.1 Atrophy of kidney (terminal)
CPT/HCPCS: 99214

== ENCOUNTER → 2024-08-12 11:21 | Outpatient (BNVA) | payer MEDICARE, OTHER, SELFPAY | PROVIDERS: PCP Internal Medicine; Visit Provider Internal Medicine Nephrology | DX: N20.0 Calculus of kidney (principal); N26.1 Atrophy of kidney (terminal); N18.31 Chronic kidney disease, stage 3a; Z79.01 Long term (current) use of anticoagulants; Z86.718 Personal history of other venous thrombosis and embolism | CPT/HCPCS: 99212 ==

== ENCOUNTER 2024-12-29 10:03 | Outpatient (REF) | payer MEDICARE, OTHER, SELFPAY ==
--- OUTSIDE RECORDS SUMMARY | 2024-12-29 11:08 | XMS_ITS | Clinical Summary ---
Author Organization [facility] Address [address] [place] [address] Phone Care Team Providers Care Gradall Operator Name Role Phone Maryam Lockhart MD Primary Care Provider [phone] [phone] Allergies No known active allergies Medications apixaban [...] disease 03/14/2021 Chronic kidney disease 09/06/2020 Immunizations Immunization Administration Dates Next Due Influenza Whole 03/18/2014 [...] Colorectal Cancer Screening: Sigmoidoscopy 08/03/2004 Pneumococcal Vaccine: 50+ Years (2 of 2 - PCV) 07/27/2021 07/27/2020 Influenza Vaccine (#1) 2025 , 03/18/2014 Pneumococcal Vaccine: Peds ( 0 to 5 Years) and At-Risk Patients (6 to 49 Years) Discontinued 07/27/2020 Hepatitis B Vaccine Aged Out No longe r eligible based on patient's age to complete this topic Insurance Medicare [facility] Medicare [facility] Care Teams Gradall Operator Relationship Specialty Start Date End Date Maryam Lockhart MD [address] PCP - General Internal Medicine 09/06/20
[2024-12-29 13:43] LABS: Anion Gap 11 (12-20); Blood Urea Nitrogen 46 mg/dL (9-16); Calcium 8.6 mg/dL (8.4-10.2); Carbon Dioxide 21 mmol/L (22-29); Chloride 114 mmol/L (96-108); Estimated Glomerular Filt Rate 27; Potassium 4.8 mmol/L (3.3-5.1); Sodium 141 mmol/L (135-145)
== END 2024-12-29 10:04 | disposition home or self-care (01) ==
LOC: HO.HKASLDS 10:03
PROVIDERS: Visit Provider Internal Medicine Nephrology
DX: N20.0 Calculus of kidney (principal); N18.31 Chronic kidney disease, stage 3a; N26.1 Atrophy of kidney (terminal)
CPT/HCPCS: 36415; 80051; 82310; 82565; 84520

== ENCOUNTER 2025-01-01 13:52 | Outpatient (AMB) | payer MEDICARE, OTHER, SELFPAY ==
--- NOTE | 2025-01-01 14:05 | HO.NEPHOV_ITS ---
Vital Signs 01/01/25 14:07 Height 5 ft 10 in Weight 252 lb BMI 36.2 BP 144/88 H Blood Pressure Location Lt brachial Position Sitting Pulse 60 Pulse Source Pulse Oximeter Pulse Oximetry (%) 96 Oxygen Delivery Method Room Air Intake Visit Reasons: Dec follow-up w/labs-Voicemail full Experimental Plastics Fabricator Required: No Accompanied by: Self / Same As Patient Allergies No Known Allergies Allergy (Verified 01/01/25 14:07) HPI Comments Details: Kamaljit was seen in follow-up of his chronic kidney disease. He has small left kidney. He has history of invasive melanoma of the neck. He has had DVT and is on anticoagulation. His serum creatinine in 2014 was 1.5 and has been staying around at 1.8 which is close to 2.2 now. His blood pressure has been at goal. He denies any chest pain, shortness of breath, proximal nocturnal dyspnea, orthopnea, pedal edema or urinary symptoms. He has prostatic symptoms. His last PSA was just over 4.0. He had no new active complaints at the time of this office visit [facility] Medical History (Updated 11/22/23 @ 14:55 by Ashu Galindo MD) H/O nephrolithotomy with removal of calculi (~10/2023) Atrophy of left kidney Chronic kidney disease, stage 3a DVT (deep venous thrombosis) Melanoma of neck Surgical History H/O neck surgery History of back surgery H/O knee surgery Social History Alcohol intake: current Comment: Socially Patient Tobacco Use Status: Former Tobacco user Review of Systems Const All systems reviewed & are unremarkable except as noted in HPI and below Physical Exam Vital Signs: Last Vital Signs Pulse 60 01/01/25 14:07 BP 144/88 H 01/01/25 14:07 Pulse Ox 96 01/01/25 14:07 Oxygen Delivery Method Room Air 01/01/25 14:07 BMI result Body Mass Index 36.2 Const General: comfortable and no acute distress Orientation/consciousness: patient oriented x3 HEENT Head: Yes normocephalic Mouth: Normal oral and palatal mucosa present Eyes EOM: EOMs intact bilaterally Neck Neck: Yes supple Resp Auscultation: clear to auscultation bilaterally Cardio Jugular venous distension: no JVD Rate: regular rate GI Palpation (GI): Soft to palpation Auscultation: normal bowel sounds General: Yes no CVA tenderness Back/Spine/Pelvis Back: no CVA tenderness Skin General skin exam: no rashes or lesions noted Neuro General: patient oriented x3 and moves all extremities Extrem General: Yes no pedal edema Results Reviewed Nephrology Results: Sodium, (135-145) 141 mmol/L 12/29/24 Potassium, (3.3-5.1) 4.8 mmol/L 12/29/24 Chloride, (96-108) 114 mmol/L H 12/29/24 Carbon Dioxide, (22-29) 21 mmol/L L 12/29/24 BUN, (9-16) 46 mg/dL H 12/29/24 Creatinine, (0.5-1.4) 2.38 mg/dL H 12/29/24 Calcium, (8.4-10.2) 8.6 mg/dL 12/29/24 Assessment & Plan Assessment & Plan (1) Chronic kidney disease, stage 3a: Code(s): N18.31 - Chronic kidney disease, stage 3a Category: Medical (2) Atrophy of left kidney: Code(s): N26.1 - Atrophy of kidney (terminal) Category: Medical (3) Renal calculus: Code(s): N20.0 - Calculus of kidney Category: Medical Plan Kamaljit has atrophic left kidney. He has mild proteinuria. He has increased his hydration. He is not taking any nonsteroidal anti-inflammatory medications. I asked him to be on a strict low-potassium diet. His blood pressure needs to be kept at goal. He may be a candidate for Jardiance. It will be tough treating him with low-dose JENNIFER-inhibitor given his predilection for recurrent hyperkalemia. He would benefit from some weight loss. I did not make any medication changes today. He has a list of foods with high potassium. Follow-up blood work ordered. Answered all questions. Orders: Orders 2 Creatinine 3 Months N18.31 - Chronic kidney disease, stage 3a Electrolytes Today N18.31 - Chronic kidney disease, stage 3a, N26.1 - Atrophy of kidney (terminal) Blood Urea Nitrogen 3 Months N18.31 - Chronic kidney disease, stage 3a Electrolytes 3 Months N18.31 - Chronic kidney disease, stage 3a Creatinine Today N18.31 - Chronic kidney disease, stage 3a, N26.1 - Atrophy of kidney (terminal) Blood Urea Nitrogen Today N18.31 - Chronic kidney disease, stage 3a, N26.1 - Atrophy of kidney (terminal) Coding Level of Care Code Est Pt Level 4 (33700) Diagnoses Chronic kidney disease, stage 3a N18.31 Atrophy of left kidney N26.1 Renal calculus N20.0
[2025-01-01 14:07] VITALS: BP 144/88; PULSE 60; O2SAT 96; BMI 36.2
--- OUTSIDE RECORDS SUMMARY | 2025-01-01 14:42 | XMS_ITS | Clinical Summary ---
Author Organization [facility] Address [address] [place] [address] Phone Care Team Providers Care Sales Manager [place] Name Role Phone Maryam Lockhart MD Primary Care Provider [phone] [phone] Allergies No known active allergies Medications apixaban [...] age to complete this topic Insurance Medicare [facility] Care Teams Sales Manager [place] Relationship Specialty Start Date End Date Maryam Lockhart MD [address] PCP - General Internal Medicine 09/06/20
== END 2025-01-01 14:43 | disposition home or self-care (01) ==
LOC: HO.HKAS 13:53
PROVIDERS: PCP Internal Medicine; Visit Provider Internal Medicine Nephrology
DX: N18.31 Chronic kidney disease, stage 3a (principal); N26.1 Atrophy of kidney (terminal); N20.0 Calculus of kidney
CPT/HCPCS: 99214

== ENCOUNTER → 2025-01-01 13:52 | Outpatient (BNVA) | payer MEDICARE, OTHER, SELFPAY | PROVIDERS: PCP Internal Medicine; Visit Provider Internal Medicine Nephrology | DX: N18.31 Chronic kidney disease, stage 3a (principal); N26.1 Atrophy of kidney (terminal); N20.0 Calculus of kidney | CPT/HCPCS: 99212 ==

== ENCOUNTER 2025-04-01 10:14 | Outpatient (REF) | payer MEDICARE, OTHER, SELFPAY ==
--- OUTSIDE RECORDS SUMMARY | 2025-04-01 12:03 | XMS_ITS | Clinical Summary ---
Author Organization [facility] Address [address] [facility] [address] [place] [address] Phone Care Team Providers Care Acrobatic Rigger Name Role Phone Maryam Lockhart MD Primary Care Provider [phone] [phone] Allergies No known active allergies Medications apixaban (ELIQUIS) 5 MG tablet Take 5 mg by mouth 2 (two) times a day Active triamcinolone (KENALOG) 0.1 % cream Active albuterol 0.63 MG/3ML nebulizer solution Take 0.63 mg by nebulization if needed for wheezing Active Active Problems Problem Noted Date Diagnosed Date Obesity 10/27/2021 Acute embolism and thrombosi s of unspecified deep veins of unspecified lower extremity 10/27/2021 Stage 3a chronic kidney disease 03/14/2021 Chronic [...] age to complete this topic Insurance Medicare [facility] Medicare [facility] Care Teams Acrobatic Rigger Relationship Specialty Start Date End Date Maryam Lockhart MD [address] PCP - General Internal Medicine 09/06/20
[2025-04-01 18:33] LABS: Anion Gap 11 (12-20); Blood Urea Nitrogen 36 mg/dL (9-16); Carbon Dioxide 21 mmol/L (22-29); Chloride 112 mmol/L (96-108); Estimated Glomerular Filt Rate 27; Potassium 5.4 mmol/L (3.3-5.1); Sodium 139 mmol/L (135-145)
== END 2025-04-01 10:15 | disposition home or self-care (01) ==
LOC: HO.HKASLDS 10:14
PROVIDERS: PCP Internal Medicine; Visit Provider Internal Medicine Nephrology
DX: N18.31 Chronic kidney disease, stage 3a (principal)
CPT/HCPCS: 36415; 80051; 82565; 84520

== ENCOUNTER 2025-04-09 14:10 | Outpatient (AMB) | payer MEDICARE, OTHER, SELFPAY ==
[2025-04-09 14:45] VITALS: BP 130/90; PULSE 67; O2SAT 95; BMI 36.4
--- NOTE | 2025-04-09 14:45 | HO.NEPHOV_ITS ---
Vital Signs 04/09/25 14:45 Height 5 ft 10 in Weight 253 lb 8 oz BMI 36.4 BP 130/90 H Blood Pressure Location Lt brachial Position Sitting Pulse 67 Pulse Source Pulse Oximeter Pulse Oximetry (%) 95 Oxygen Delivery Method Room Air Intake Visit Reasons: 3mon f/u w/labs-Conf C Python Developer Required: No Accompanied by: Self / Same As Patient Allergies No Known Allergies Allergy (Verified 04/09/25 14:45) HPI Comments Details: Kamaljit was seen in follow-up of his chronic kidney disease. He has small left kidney. He has history of invasive melanoma of the neck. He has had DVT and is on anticoagulation. His serum creatinine in 2014 was 1.5 and has been staying around at 1.8 which is close to 2.2 now. His blood pressure has been at goal. He denies any chest pain, shortness of breath, proximal nocturnal dyspnea, orthopnea, pedal edema or urinary symptoms. He has prostatic symptoms. His last PSA was just over 4.0. He had no new active complaints at the time of this office visit ON LICENSE OF [facility] Medical History (Updated 04/09/25 @ 14:59 by Ashu Galindo MD) H/O nephrolithotomy with removal of calculi (~10/2023) Atrophy of left kidney Chronic kidney disease, stage 3a DVT (deep venous thrombosis) Melanoma of neck Surgical History H/O neck surgery History of back surgery H/O knee surgery Social History Alcohol intake: current Comment: Socially Patient Tobacco Use Status: Former Tobacco user Physical Exam Vital Signs: Last Vital Signs Pulse 67 04/09/25 14:45 BP 130/90 H 04/09/25 14:45 Pulse Ox 95 04/09/25 14:45 Oxygen Delivery Method Room Air 04/09/25 14:45 BMI result Body Mass Index 36.4 Const General: comfortable and no acute distress Orientation/consciousness: patient oriented x3 HEENT Head: Yes normocephalic Mouth: Normal oral and palatal mucosa present Eyes EOM: EOMs intact bilaterally Neck Neck: Yes supple Resp Auscultation: clear to auscultation bilaterally Cardio Jugular venous distension: no JVD Rate: regular rate GI Palpation (GI): Soft to palpation Auscultation: normal bowel sounds General: Yes no CVA tenderness Back/Spine/Pelvis Back: no CVA tenderness Skin General skin exam: no rashes or lesions noted Neuro General: patient oriented x3 and moves all extremities Extrem General: Yes no pedal edema Results Reviewed Nephrology Results: Sodium, (135-145) 139 mmol/L 04/01/25 Potassium, (3.3-5.1) 5.4 mmol/L H 04/01/25 Chloride, (96-108) 112 mmol/L H 04/01/25 Carbon Dioxide, (22-29) 21 mmol/L L 04/01/25 BUN, (9-16) 36 mg/dL H 04/01/25 Creatinine, (0.5-1.4) 2.42 mg/dL H 04/01/25 Calcium, (8.4-10.2) 8.6 mg/dL 12/29/24 Assessment & Plan Assessment & Plan (1) CKD stage 3b, GFR 30-44 ml/min: Code(s): N18.32 - Chronic kidney disease, stage 3b Category: Medical (2) Atrophy of left kidney: Code(s): N26.1 - Atrophy of kidney (terminal) Category: Medical (3) Renal calculus: Code(s): N20.0 - Calculus of kidney Category: Medical (4) Hyperkalemia: Code(s): E87.5 - Hyperkalemia Category: Medical Plan Kamaljit has atrophic left kidney. He has mild proteinuria. He has increased his hydration. He is not taking any nonsteroidal anti-inflammatory medications. I asked him to be on a strict low-potassium diet. I started him on Kionex 30 Gram once a week. His blood pressure needs to be kept at goal. He may be a candidate for Jardiance. It will be tough treating him with low-dose JENNIFER-inhibitor given his predilection for recurrent hyperkalemia. He would benefit from some weight loss. I did not make any medication changes today. He has a list of foods with high potassium. Follow-up blood work ordered. Answered all questions. Orders: Orders Electrolytes 2 Months E87.5 - Hyperkalemia, N18.32 - Chronic kidney disease, stage 3b, N20.0 - Calculus of kidney, N26.1 - Atrophy of kidney (terminal) Blood Urea Nitrogen 3 Months E87.5 - Hyperkalemia, N18.32 - Chronic kidney disease, stage 3b Blood Urea Nitrogen 2 Months E87.5 - Hyperkalemia, N18.32 - Chronic kidney disease, stage 3b, N20.0 - Calculus of kidney, N26.1 - Atrophy of kidney (terminal) Creatinine 2 Months E87.5 - Hyperkalemia, N18.32 - Chronic kidney disease, stage 3b, N20.0 - Calculus of kidney, N26.1 - Atrophy of kidney (terminal) Electrolytes 3 Months E87.5 - Hyperkalemia, N18.32 - Chronic kidney disease, stage 3b Creatinine 3 Months E87.5 - Hyperkalemia, N18.32 - Chronic kidney disease, stage 3b Medications: New sodium polystyrene sulfonate 30 grams PO .once a week 453.6 grams 4RF Coding Level of Care Code Est Pt Level 4 (83267) Diagnoses CKD stage 3b, GFR 30-44 ml/min N18.32 Atrophy of left kidney N26.1 Renal calculus N20.0 Hyperkalemia E87.5
== END 2025-04-09 15:06 | disposition home or self-care (01) ==
LOC: HO.HKAS 14:10
PROVIDERS: PCP Internal Medicine; Visit Provider Internal Medicine Nephrology
DX: N18.32 Chronic kidney disease, stage 3b (principal); N26.1 Atrophy of kidney (terminal); N20.0 Calculus of kidney; E87.5 Hyperkalemia
CPT/HCPCS: 99214

== ENCOUNTER → 2025-04-09 14:10 | Outpatient (BNVA) | payer MEDICARE, OTHER, SELFPAY | PROVIDERS: PCP Internal Medicine; Visit Provider Internal Medicine Nephrology | DX: N18.32 Chronic kidney disease, stage 3b (principal); N26.1 Atrophy of kidney (terminal); E87.5 Hyperkalemia; N20.0 Calculus of kidney | CPT/HCPCS: 99212 ==